=== PATIENT | male | born 1970 ===

== ENCOUNTER 2017-03-01 11:22 | Outpatient (CLI) | payer OTHER | END 2017-03-01 11:23 | disposition home or self-care (01) | DX: G47.30 Sleep apnea, unspecified (principal); G47.8 Other sleep disorders; R51 Headache; G47.10 Hypersomnia, unspecified; R06.83 Snoring ==

== ENCOUNTER 2017-04-07 22:33 | Outpatient (CLI) | payer OTHER | END 2017-04-07 22:34 | disposition home or self-care (01) | LOC: SC 22:33 | PROVIDERS: ATTEND Internal Medicine Pulmonary Disease | DX: G47.33 Obstructive sleep apnea (adult) (pediatric) (principal); Z68.38 Body mass index [BMI] 38.0-38.9, adult | CPT/HCPCS: 95810 ==

== ENCOUNTER 2017-05-16 15:09 | Outpatient (CLI) | payer OTHER | END 2017-05-16 15:10 | disposition home or self-care (01) | LOC: SC 15:09 | PROVIDERS: ATTEND Nurse Practitioner Family | DX: G47.33 Obstructive sleep apnea (adult) (pediatric) (principal) | CPT/HCPCS: 99212; 99213 ==

== ENCOUNTER 2017-06-16 22:37 | Outpatient (CLI) | payer OTHER | END 2017-06-16 22:38 | disposition home or self-care (01) | LOC: SC 22:37 | PROVIDERS: ATTEND Internal Medicine Pulmonary Disease | DX: G47.33 Obstructive sleep apnea (adult) (pediatric) (principal) | CPT/HCPCS: 95811 ==

== ENCOUNTER 2017-07-18 09:08 | Outpatient (CLI) | payer OTHER | END 2017-07-18 09:09 | disposition home or self-care (01) | LOC: SC 09:08 | PROVIDERS: ATTEND Nurse Practitioner Family | DX: G47.33 Obstructive sleep apnea (adult) (pediatric) (principal) | CPT/HCPCS: 99212; 99213 ==

== ENCOUNTER 2020-09-28 18:52 | Emergency (ER) | payer OTHER ==
--- NOTE | 2020-09-28 19:05 | ED Physician Documentation ---
PD HPI URI - Stated complaint Stated Complaint: SOA, - Chief complaint Chief Complaint: Resp - History obtained from History obtained from: Patient - History of Present Illness Timing - onset: How many days ago (10) Timing duration: Days (10) Timing details: Gradual onset Pain level max: 0 Pain level now: 0 Associated symptoms: Fever, Chills, Dry cough, Chest pain (burning). No: Sweats, Ear pain, Nasal congestion, Rhinorrhea, Sore throat Improves by: Rest Worsened by: Activity - Additional information Additional information: Patient is a 50-year-old male who presents to the emergency department stating that he was diagnosed with Covid 10 days ago. He states that over the past 24 hours he has increased work of breathing. Increasing fever. States his O2 sat was 87% at home. His is a nurse. Worse with movement, better with rest. Does not use supplemental oxygen. Has had no vomiting, no abdominal pain. Review of Systems Ten Systems: 10 systems reviewed and negative Constitutional: reports: Fever, Chills Nose: reports: Rhinorrhea / runny nose, Congestion Throat: denies: Sore throat Cardiac: reports: Chest pain / pressure (burning in his lungs) Respiratory: reports: Cough GI: denies: Abdominal Pain, Nausea, Vomiting, Diarrhea Skin: denies: Rash Musculoskeletal: denies: Neck pain, Back pain Neurologic: denies: Headache PD PAST MEDICAL HISTORY - Past Medical History Past Medical History: Yes Endocrine/Autoimmune: HyPOthyroidism Psych: Depression - Present Medications Home Medications: Ambulatory Orders Medication Instructions Recorded Confirmed Anastrozole 1 mg PO DAILY 09/28/20 09/28/20 Levothyroxine Sodium [Levo-T] 88 mcg PO DAILY 09/28/20 09/28/20 Liothyronine [Cytomel] 5 mcg PO QDAC 09/28/20 09/28/20 Meloxicam [Mobic] 15 mg PO DAILY 09/28/20 09/28/20 Progesterone, Micronized [Crinone] 1 mg TOP BID 09/28/20 09/28/20 Testosterone Cypionate 0.25 ml TOP DAILY 09/28/20 09/28/20 [Depo-Testosterone] buPROPion HCl [Wellbutrin Sr] 200 mg PO DAILY 09/28/20 09/28/20 - Allergies Allergies/Adverse Reactions: Allergies Allergy/AdvReac Type Severity Reaction Status Date / Time No Known Drug Allergies Allergy Verified 09/28/20 19:55 - Living Situation Living Situation: reports: With family Living Arrangement: reports: At home - Family History Family history: reports: Non contributory PD ED PE NORMAL - Vitals Vital signs reviewed: Yes - General General: Alert and oriented X 3, Well developed/nourished, Other (mild resp distress) - HEENT HEENT: PERRL, Moist mucous membranes, Pharynx benign - Neck Neck: Supple, no meningeal sign - Cardiac Cardiac: RRR, Strong equal pulses - Respiratory Respiratory: No respiratory distress, Clear bilaterally - Abdomen Abdomen: Soft, Non tender, Non distended - Back Back: No spinal TTP - Derm Derm: Warm and dry - Extremities Extremities: No calf tenderness / cord - Neuro Neuro: Alert and oriented X 3, 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, No motor deficit, No sensory deficit, Normal speech Eye Opening: Spontaneous Motor: Obeys Commands Verbal: Oriented GCS Score: 15 - Psych Psych: Normal mood, Normal affect Results - Vitals Vitals: Vital Signs - 24 hr 09/28/20 09/28/20 09/28/20 18:55 20:05 21:24 Temperature 38.2 C H Heart Rate 74 73 72 Respiratory 16 16 20 Rate Blood Pressure 107/57 L 113/70 112/61 O2 Saturation 91 L 97 93 Oxygen O2 Source Nasal cannula Oxygen Flow Rate 2 - Labs Labs: Laboratory Tests 09/28/20 09/28/20 09/28/20 19:12 19:12 19:12 WBC 8.0 RBC 4.94 Hgb 14.7 Hct 43.9 MCV 88.9 MCH 29.8 MCHC 33.5 RDW 13.8 Plt Count 238 MPV 8.3 Neut # (Auto) 6.2 Lymph # (Auto) 1.0 L [place] # (Auto) 0.4 Eos # (Auto) 0.1 Baso # (Auto) 0.0 Absolute Nucleated RBC 0.00 Nucleated RBC % 0.0 PT 14.8 H INR 1.4 H APTT 28.0 Sodium 133 L Potassium 4.2 Chloride 92 L Carbon Dioxide 27 Anion Gap 14.0 H BUN 18 Creatinine 1.6 H Estimated GFR (MDRD) 46 L Glucose 136 H Lactic Acid Calcium 8.7 Total Bilirubin 0.7 AST 32 ALT 38 Alkaline Phosphatase 70 Total Protein 7.2 Albumin 3.4 Globulin 3.8 Albumin/Globulin Ratio 0.9 L Lipase 40 Nasal Adenovirus (PCR) Nasal B. parapertussis DNA (PCR) Nasal Coronavir 229E PCR Nasal Coronavir HKU1 PCR Nasal Coronavir NL63 PCR Nasal Coronavir OC43 PCR Nasal Enterovir/Rhinovir PCR Nasal Influenza B PCR Nasal Influenza A PCR Nasal Parainfluen 1 PCR Nasal Parainfluen 2 PCR Nasal Parainfluen 3 PCR Nasal Parainfluen 4 PCR Nasal RSV (PCR) Nasal B.pertussis DNA PCR Nasal C.pneumoniae (PCR) Nish Human Metapneumo PCR Nasal M.pneumoniae (PCR) Nasal SARS-CoV-2 (PCR) 09/28/20 09/28/20 19:12 20:00 WBC RBC Hgb Hct MCV MCH MCHC RDW Plt Count MPV Neut # (Auto) Lymph # (Auto) [place] # (Auto) Eos # (Auto) Baso # (Auto) Absolute Nucleated RBC Nucleated RBC % PT INR APTT Sodium Potassium Chloride Carbon Dioxide Anion Gap BUN Creatinine Estimated GFR (MDRD) Glucose Lactic Acid 1.4 Calcium Total Bilirubin AST ALT Alkaline Phosphatase Total Protein Albumin Globulin Albumin/Globulin Ratio Lipase Nasal Adenovirus (PCR) NOT DETECTED Nasal B. parapertussis DNA (PCR) NOT DETECTED Nasal Coronavir 229E PCR NOT DETECTED Nasal Coronavir HKU1 PCR NOT DETECTED Nasal Coronavir NL63 PCR NOT DETECTED Nasal Coronavir OC43 PCR NOT DETECTED Nasal Enterovir/Rhinovir PCR NOT DETECTED Nasal Influenza B PCR NOT DETECTED Nasal Influenza A PCR NOT DETECTED Nasal Parainfluen 1 PCR NOT DETECTED Nasal Parainfluen 2 PCR NOT DETECTED Nasal Parainfluen 3 PCR NOT DETECTED Nasal Parainfluen 4 PCR NOT DETECTED Nasal RSV (PCR) NOT DETECTED Nasal B.pertussis DNA PCR NOT DETECTED Nasal C.pneumoniae (PCR) NOT DETECTED Nish Human Metapneumo PCR NOT DETECTED Nasal M.pneumoniae (PCR) NOT DETECTED Nasal SARS-CoV-2 (PCR) DETECTED A - Rads (name of study) CXR Radiology: Prelim report reviewed, EMP read contemporaneously, See rad report (Bilateral patchy airspace opacities. This is in keeping with COVID-19. ) PD MEDICAL DECISION MAKING - ED course Complexity details: reviewed results, re-evaluated patient, considered differential, d/w patient ED course: 50-year-old male presents to the emergency department with COVID-19 and hypoxia. Chest x-ray is consistent with COVID-19. He does have a fever as well. I discussed the case with our hospitalist here, Dr. Feldman, as we do not have treatment here, we feel he would be better served at a hospital with remdesivir or other treatment options available. Therefore the patient will be transferred. [facility] in [place] has no beds, [facility] has no beds. Dr. Gandhi, hospitalist at [facility] in [place] graciously accepts in transfer. COBRA forms completed 2149 This document was made in part using voice recognition software. While efforts are made to proofread this document, sound alike and grammatical errors may occur. Departure - Departure Disposition: 02 Transfer Acute Care Hosp Clinical Impression: COVID-19, Hypoxia Fever Qualifiers: Fever type: unspecified Qualified Code(s): R50.9 - Fever, unspecified Condition: Stable
[2020-09-28 19:23] LABS: BASOPHILS % (AUTO) 0.4 %; EOSINOPHILS # (AUTO) 0.1 10^3/uL (0.0-0.7); EOSINOPHILS % (AUTO) 1.5 %; HGB - HEMOGLOBIN 14.7 g/dL (14.0-18.0); LYMPHOCYTES % (AUTO) 12.5 %; MEAN CORPUSCULAR HEMOGLOBIN 29.8 pg (27.0-31.0); MEAN CORPUSCULAR HGB CONC 33.5 g/dL (32.0-36.0); MEAN CORPUSCULAR VOLUME 88.9 fL (80.0-94.0); MEAN PLATELET VOLUME 8.3 fL (7.4-11.4); MONOCYTES # (AUTO) 0.4 10^3/uL (0.0-1.0); MONOCYTES % (AUTO) 4.8 %; NEUTROPHILS # (AUTO) 6.2 10^3/uL (1.5-6.6); NEUTROPHILS % (AUTO) 77.8 %; PLT - PLATELET COUNT 238 10^3/uL (130-450); RED BLOOD COUNT 4.94 10^6/uL (4.70-6.10); RED CELL DISTRIBUTION WIDTH 13.8 % (12.0-15.0)
[2020-09-28 19:29] LABS: INR 1.4 (0.8-1.2); PT - PROTHROMBIN TIME 14.8 secs (9.9-12.6)
[2020-09-28 19:35] LABS: ALBUMIN 3.4 g/dL (3.2-5.5); ALBUMIN/GLOBULIN RATIO 0.9 (1.0-2.2); BILIRUBIN,TOTAL 0.7 mg/dL (0.2-1.0); CALCIUM 8.7 mg/dL (8.5-10.3); CREATININE 1.6 mg/dL (0.6-1.2); TOTAL PROTEIN 7.2 g/dL (6.7-8.2)
[2020-09-28] MEDS ORDERED: SODIUM CHLORIDE 0.9% 1,000 ML IV STA (19:37)
--- NOTE | 2020-09-28 19:47 | XRAY Report ---
PROCEDURE: Chest 1 View X-Ray INDICATIONS: dyspnea, +COVID TECHNIQUE: One view of the chest was acquired. COMPARISON: None. FINDINGS: Surgical changes and devices: None. Lungs and pleura: No pleural effusions or pneumothorax. Bilateral patchy airspace opacities. Moderat e to severe. Mediastinum: Mediastinal contours appear normal. Heart size is normal. Bones and chest wall: No suspicious bony lesions. Overlying soft tissues appear unremarkable. IMPRESSION: Bilateral patchy airspace opacities. This is in keeping with COVID-19. Reviewed by: Tereso Wray MD on 09/28/2020 7:46 PM PST Approved by: Tereso Wray MD on 09/28/2020 7:46 PM PST Station ID: [id number]
[2020-09-28 21:08] LABS: C. PNEUMONIAE- RESP PCR PANEL NOT DETECTED
[2020-09-28] MEDS ORDERED: oxyCODONE 5 MG TABLET PO STA (21:41)
[2020-09-28] MEDS ORDERED: BENZONATATE 100 MG CAPSULE PO STA (21:41)
[2020-09-28 23:09] VITALS: BP 103/65
== END 2020-09-28 23:25 | disposition short-term general hospital (02) ==
LOC: ED 18:52
DX: U07.1 COVID-19 (principal); R09.02 Hypoxemia
CPT/HCPCS: 0202U; 36415; 71045; 80053; 83605; 83690; 85025; 85610; 85730; 87040; 99285; A9270

== ENCOUNTER 2020-09-28 23:24 | Outpatient (CLI) | payer OTHER | END 2020-09-28 23:25 | disposition short-term general hospital (02) | LOC: EMS 23:24 | PROVIDERS: ATTEND Surgery | DX: U07.1 COVID-19 (principal); R09.02 Hypoxemia | CPT/HCPCS: A0425; A0428 ==